=== PATIENT | female | born 1980 | race Caucasian/White ===

== ENCOUNTER 2017-03-05 16:36 | Emergency (ER) | payer OTHER ==
[~2017-03-05] VITALS: Ht 170.2 cm; Wt 83.2 kg
[~2017-03-05 16:36] MED LIST: CLON.5 PO; DICL50TA3 PO; WELL150T PO
[2017-03-05 16:40] VITALS: BP 142/83; PULSE 100; RESP 16; TEMP 98.2; O2SAT 99
[2017-03-05] MEDS ORDERED: CLON.5 PO (17:10)
[2017-03-05] MEDS ORDERED: NAPROXEN 500 MG TAB PO ONE (17:15)
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
== END 2017-03-05 19:07 | disposition home or self-care (01) ==
LOC: PHEFT 16:36
DX: M25.511 Pain in right shoulder (principal); M54.2 Cervicalgia; V89.2XXA Person injured in unspecified motor-vehicle accident, traffic, initial encounter; Y92.410 Unspecified street and highway as the place of occurrence of the external cause; F17.200 Nicotine dependence, unspecified, uncomplicated
CPT/HCPCS: 72125